=== PATIENT | female | born 1985 | race African-American/Black ===

== ENCOUNTER 2019-03-16 23:37 | Emergency (ER) | payer SELFPAY ==
[~2019-03-16] VITALS: Ht 175.3 cm; Wt 69.9 kg
[2019-03-16 23:58] VITALS: Ht 175.3 cm; Wt 69.9 kg
[2019-03-17 02:39] LABS: PLATELET COUNT 196 x10^3mcL (130-400); RED CELL DISTRIBUTION WIDTH 12.7 % (11.5-14.5)
[2019-03-17 02:40] LABS: BASOPHIL % 0 % (0-2)
[2019-03-17 03:22] LABS: CALCIUM 8.5 mg/dL (8.5-10.1); CARBON DIOXIDE 25.7 mmol/L (21-32); CHLORIDE SERUM 109 mmol/L (98-107); CREATININE SERUM 0.8 mg/dL (0.6-1.0); GFR1 > 60 mL/min; GLUCOSE SERUM 122 mg/dL (74-106); POTASSIUM SERUM 3.7 mmol/L (3.5-5.1); SODIUM SERUM 142 mmol/L (136-145)
[2019-03-17 03:37] LABS: ALBUMIN 3.9 g/dL (3.4-5.0); ALKALINE PHOSPHATASE 60 U/L (46-116); ALT/SGPT 19 U/L (14-59); AST/SGOT 16 U/L (15-37); BILIRUBIN TOTAL 0.2 mg/dL (0.20-1.00); TOTAL PROTEIN, SERUM 7.5 g/dL (6.4-8.2)
[2019-03-17 04:20] VITALS: BP 104/54
== END 2019-03-17 04:20 | disposition home or self-care (01) ==
LOC: ED 23:37
PROVIDERS: Emergency Medicine
DX: R53.1 Weakness (principal)
CPT/HCPCS: 36415; J7030